=== PATIENT | female | born 1965 | race Caucasian/White ===

== ENCOUNTER 2018-02-01 10:01 | Emergency (ER) | payer BC ==
[~2018-02-01] VITALS: Ht 162.6 cm; Wt 51.7 kg
[2018-02-01 10:28] VITALS: BP 159/93
[2018-02-01] MEDS ORDERED: HYDR-971 PO (11:06)
[2018-02-01] MEDS ORDERED: ACYC800T PO (11:06)
[2018-02-01] MEDS ORDERED: IBUP-1060 PO (11:06)
[2018-02-01] MEDS: MORPHINE SULFATE 10 MG/ML VIAL. IM ONE (11:32)
--- NOTE | 2018-02-01 16:09 | PHYS DOC ---
Past Medical History Past Medical History: Other Additional Past Medical Histor: MS Past Surgical History: Hysterectomy Alcohol Use: None Drug Use: None Adult General Chief Complaint Chief Complaint: SKIN RASH/ABSCESS HPI HPI Patient is a 53 year old female who presents with rash. She develops symptoms of the last 2-3 days. Patient has not had similar symptoms in the past. No fever. She complains of rash over the left side of her torso. No additional complaints today. Review of Systems Review of Systems Constitutional: Denies fever or chills Respiratory: Denies Cardiovascular: No additional information GI: Denies abdominal pain : Denies dysuria Musculoskeletal: Denies back pain Integument: rash on torso Neurologic: Denies headache Endocrine: Denies polyuria All other systems were reviewed and found to be within normal limits, except as documented in this note. Current Medications Current Medications Current Medications Medications (Trade) Dose Ordered Sig/Hemant Start Time Stop Time Status Last Admin Dose Admin Morphine Sulfate (Morphine Sulfate) 10 mg 1X ONCE 02/01/18 11:30 02/01/18 11:31 DC 02/01/18 11:32 10 MG Allergies Allergies Allergies Coded Allergies Type Severity Reaction Last Updated Verified codeine Allergy Severe ANAPHYLAXSIS 02/01/18 Yes Sulfa (Sulfonamide Antibiotics) Allergy Intermediate HIVES 02/01/18 Yes Physical Exam Physical Exam Constitutional: Well developed, well nourished, no acute distress, non-toxic appearance HENT: Normocephalic, atraumatic, bilateral external ears normal, oropharynx moist Neck: Normal range of motion Cardiovascular:Heart rate regular rhythm Lungs & Thorax: Bilateral breath sounds clear to auscultation Skin: Warm, dry, vesicles over erythematous base in varying stages over right rib cage and back c/w shingles Back: No tenderness Neurologic: Alert and oriented X 3 Psychologic: Affect normal Current Patient Data Vital Signs Vital Signs Date Time Temp Pulse Resp B/P (MAP) Pulse Ox O2 Delivery O2 Flow Rate FiO2 02/01/18 11:32 16 98 Room Air 02/01/18 10:28 98.1 84 159/93 (115) 98.1 EKG EKG [] Radiology/Procedures Radiology/Procedures [] Course & Med Decision Making Course & Med Decision Making Pertinent Labs and Imaging studies reviewed. (See chart for details) Patient was evaluated in the emergency department for symptoms consistent with shingles. She has not had them previously. She was given a shot of intramuscular morphine in the ER which did relieve her pain symptoms. She was discharged home with acyclovir, ibuprofen, and [place] for more severe pain. She was advised to follow-up with her primary care doctor or return to the ER for any new or worsening symptoms. Dragon Disclaimer Dragon Disclaimer This electronic medical record was generated, in whole or in part, using a voice recognition dictation system. Departure Departure Impression: Primary Impression: Shingles Disposition: HOME, SELF-CARE Condition: GOOD Patient Instructions: Shingles, Pain Medicine Instructions Scripts Acyclovir (ACYCLOVIR) 800 Mg Tablet 1 TAB PO 5XDAY for 10 Days, #50 TAB 2 Refills Prov: ADA COLLIER DO 02/01/18 Hydrocodone/Apap 5-325 (NORCO 5-325 TABLET) 1 Each Tablet 2 EACH PO PRN Q6HRS PRN for severe pain, #30 as needed for pain Prov: ADA COLLIER DO 02/01/18 Ibuprofen (IBUPROFEN) 800 Mg Tablet 800 MG PO PRN TID PRN for moderate pain, #30 TAB take with food or milk to avoid upsetting stomach Prov: ADA COLLIER DO 02/01/18 ADA COLLIER DO Feb 01, 2018 16:09
== END 2018-02-01 11:54 | disposition home or self-care (01) ==
LOC: ER 10:01
DX: B02.9 Zoster without complications (principal); Z90.710 Acquired absence of both cervix and uterus; Z88.5 Allergy status to narcotic agent; Z88.2 Allergy status to sulfonamides
CPT/HCPCS: 96372; 99283; J2270

== ENCOUNTER 2018-02-06 13:16 | Emergency (ER) | payer BC ==
[~2018-02-06] VITALS: Ht 167.6 cm; Wt 50.8 kg
[~2018-02-06 13:16] MED LIST: ACYC800T PO; HYDR-971 PO; IBUP-1060 PO
[2018-02-06] MEDS ORDERED: oxyCODONE/APAP 5/325 1 TAB TABLET PO ONE (14:30)
[2018-02-06] MEDS ORDERED: predniSONE 20 MG TABLET PO ONE (14:30)
[2018-02-06] MEDS ORDERED: MORPHINE SULFATE 10 MG/ML VIAL. IM ONE (14:30)
[2018-02-06] MEDS ORDERED: KETOROLAC 60 MG/2 ML INJ. IM ONE (14:30)
--- NOTE | 2018-02-06 14:37 | RAD ---
EXAM: CHEST 1 VIEW History: Rib pain, dyspnea COMPARISON: None available. TECHNIQUE: Single portable radiograph of the chest FINDINGS: The cardiac silhouette is unremarkable. The lungs are clear bilaterally. The costophrenic sulci are clear and well demarcated. Partially visualized air distended bowel loop in the epigastrium. IMPRESSION: No radiographic evidence of an acute cardiopulmonary process. Electronically signed by: Popeye Pena MD (02/06/2018 2:34 PM) [facility]
[2018-02-06] MEDS ORDERED: GABA600T2 PO (14:44)
[2018-02-06] MEDS ORDERED: CEPH500T PO (14:44)
[2018-02-06] MEDS ORDERED: METH4TAB2 PO (14:44)
--- NOTE | 2018-02-06 14:45 | PHYS DOC ---
Past Medical History Past Medical History: Other Additional Past Medical Histor: MS,SHINGLES Past Surgical History: Hysterectomy Alcohol Use: None Drug Use: None Adult General Chief Complaint Chief Complaint: RIB PAIN HPI HPI Patient is a 53 year old female who presents with 10 out of 10 pain related shingles she was diagnosed with 5 days ago. Patient denies any fever. She states some of the lesions have started turning yellow. She states she's been taking hydrocodone prescribed 5 days ago with no relief. Review of Systems Review of Systems Constitutional: Denies fever or chills [] Eyes: Denies change in visual acuity, redness, or eye pain [] HENT: Denies nasal congestion or sore throat [] Respiratory: Denies cough or shortness of breath [] Cardiovascular: No additional information not addressed in HPI [] GI: Denies abdominal pain, nausea, vomiting, bloody stools or diarrhea [] : Denies dysuria or hematuria [] Musculoskeletal: Denies back pain or joint pain [] Integument: Reports shingles rash and pain Neurologic: Denies headache, focal weakness or sensory changes [] All other systems were reviewed and found to be within normal limits, except as documented in this note. Current Medications Current Medications Current Medications Medications (Trade) Dose Ordered Sig/Hemant Start Time Stop Time Status Last Admin Dose Admin Ketorolac Tromethamine (Toradol Im) 60 mg 1X ONCE 02/06/18 14:30 02/06/18 14:32 DC Morphine Sulfate (Morphine Sulfate) 5 mg 1X ONCE 02/06/18 14:30 02/06/18 14:31 UNV Oxycodone/ Acetaminophen (Percocet 5/325) 2 tab 1X ONCE 02/06/18 14:30 02/06/18 14:31 UNV Prednisone (Prednisone) 60 mg 1X ONCE 02/06/18 14:30 02/06/18 14:32 DC Allergies Allergies Allergies Coded Allergies Type Severity Reaction Last Updated Verified codeine Allergy Severe ANAPHYLAXSIS 02/01/18 Yes Sulfa (Sulfonamide Antibiotics) Allergy Intermediate HIVES 02/01/18 Yes Physical Exam Physical Exam Constitutional: Well developed, well nourished, no acute distress, non-toxic appearance. [] HENT: Normocephalic, atraumatic, bilateral external ears normal, oropharynx moist, no oral exudates, nose normal. [] Eyes: PERRLA, EOMI, conjunctiva normal, no discharge. [] Neck: Normal range of motion, no tenderness, supple, no stridor. [] Cardiovascular:Heart rate regular rhythm, no murmur [] Lungs & Thorax: Bilateral breath sounds clear to auscultation [] Abdomen: Bowel sounds normal, soft, no tenderness, no masses, no pulsatile masses. [] Skin: Warm, dry, shingles lesions noted along dermatome 7 on the left side. Some of the lesions are yellowish concerning for infection. Back: No tenderness, no CVA tenderness. [] Extremities: No tenderness, no cyanosis, no clubbing, ROM intact, no edema. [] Neurologic: Alert and oriented X 3, normal motor function, normal sensory function, no focal deficits noted. [] Psychologic: Affect normal, judgement normal, mood normal. [] Current Patient Data Vital Signs Vital Signs Date Time Temp Pulse Resp B/P (MAP) Pulse Ox O2 Delivery O2 Flow Rate FiO2 18 14:15 97.8 119 22 138/88 (105) 99 Room Air 97.8 EKG EKG [] Radiology/Procedures Radiology/Procedures [] Course & Med Decision Making Course & Med Decision Making Pertinent Labs and Imaging studies reviewed. (See chart for details) This is a 53-year-old female patient presenting to the ED today with shingles rash and pain. She was diagnosed with shingles 5 days ago. She is on acyclovir and hydrocodone with no relief of her pain. Gave her prescription for gabapentin and Medrol Dosepak to take with her current pain medicines. Also given prescription for cephalexin because some of the lesions aren't yellowish. Follow-up with her PCP in 1-2 weeks. Dragon Disclaimer Dragon Disclaimer This electronic medical record was generated, in whole or in part, using a voice recognition dictation system. Departure Departure Impression: Primary Impression: Shingles rash Disposition: 01 HOME, SELF-CARE Condition: STABLE Referrals: NO PCP (PCP) Follow-up with your primary care doctor in one week Patient Instructions: Shingles, [id number] Additional Instructions: You were evaluated in the emergency room for shingles pain. Continue taking acyclovir and hydrocodone. We added you more pain medicine and antibiotics. Take them as prescribed. Scripts Gabapentin (GABAPENTIN) 600 Mg Tablet 600 MG PO TID, #90 TAB Prov: SHINE QUINTERO APRN 02/06/18 Methylprednisolone (MEDROL) 4 Mg Tab.ds.pk 1 PKG PO UD, #1 PKG Prov: SHINE QUINTERO APRN 02/06/18 Cephalexin (CEPHALEXIN) 500 Mg Tablet 1 TAB PO QID, #40 TAB Prov: SHINE QUINTERO APRN 02/06/18 Problem Qualifiers Primary Impression: Shingles rash Herpes zoster complications: without complications Qualified Codes: B02.9 - Zoster without complications SHINE QUINTERO APRN Feb 06, 2018 14:44
[2018-02-06 15:00] VITALS: BP 121/77
== END 2018-02-06 15:04 | disposition home or self-care (01) ==
LOC: ER 13:16
DX: R21 Rash and other nonspecific skin eruption (principal); B02.9 Zoster without complications; Z90.710 Acquired absence of both cervix and uterus; Z88.5 Allergy status to narcotic agent; Z88.2 Allergy status to sulfonamides
CPT/HCPCS: 71045; 96372; 99284; J1885; J2270; J7512

== ENCOUNTER 2018-04-07 14:22 | Emergency (ER) | payer BC ==
[~2018-04-07] VITALS: Ht 167.6 cm; Wt 50.8 kg
[~2018-04-07 14:22] MED LIST changes: +CEPH500T PO; +GABA600T2 PO; +HYDR-3164 PO; -HYDR-971 PO; +METH4TAB2 PO
[2018-04-07 14:36] VITALS: BP 143/80
--- NOTE | 2018-04-07 14:54 | PHYS DOC ---
Past Medical History Past Medical History: Other Additional Past Medical Histor: MS,KAMINI Past Surgical History: Hysterectomy Alcohol Use: None Drug Use: None Adult General Chief Complaint Chief Complaint: LOWER EXT PAIN HPI HPI 53-year-old female presents to ER via POV with complaints of left knee redness and pain for the past 3 days which has gradually worsened. Patient reports she has been ambulatory without assistive device. Patient states she took Tylenol last night with slight improvement in pain. Patient denies any recent falls or injury. Patient denies any recent travel or previous left knee symptoms. Review of Systems Review of Systems Constitutional: Denies fever or chills [] Respiratory: Denies cough or shortness of breath [] Cardiovascular: No additional information not addressed in HPI [] GI: Denies nausea, vomiting Musculoskeletal: Denies back pain. Reports left knee pain, redness, and swelling Integument: Denies rash or skin lesions [] Neurologic: Denies headache, focal weakness or sensory changes. Denies numbness or tingling All other systems were reviewed and found to be within normal limits, except as documented in this note. Current Medications Current Medications Current Medications Medications (Trade) Dose Ordered Sig/Hemant Start Time Stop Time Status Last Admin Dose Admin Ibuprofen (Motrin) 600 mg 1X ONCE 04/07/18 15:00 04/07/18 15:01 DC 04/07/18 14:59 600 MG Allergies Allergies Allergies Coded Allergies Type Severity Reaction Last Updated Verified codeine Allergy Severe ANAPHYLAXSIS 02/01/18 Yes Sulfa (Sulfonamide Antibiotics) Allergy Intermediate HIVES 02/01/18 Yes Physical Exam Physical Exam Constitutional: Well developed, well nourished, no acute distress, non-toxic appearance. [] HENT: Normocephalic, atraumatic, oropharynx moist Eyes: Pupils equal, conjunctiva normal, no discharge. [] Neck: Normal range of motion, no tenderness, supple, no stridor. [] Cardiovascular:Heart rate regular Lungs & Thorax: Resp. equal/nonlabored Abdomen: Bowel sounds normal, soft, no tenderness, no masses, no pulsatile masses. [] Skin: Warm, dry Extremities: No cyanosis, no clubbing, ROM intact. Anterior swelling to left knee with warmth and erythema. No palpable effusion or dislocation/deformity- she is able to extend/flex but has increased pain w/these motions. No effusion palp. on exam. No posterior knee pain/swelling/erythema. Calf size symmetric bilat. 2+ pedal/dorsal pedis bilat. No pedal edema bilat. Neurologic: Alert and oriented X 3, normal motor function, normal sensory function, no focal deficits noted. [] Psychologic: Affect normal, judgement normal, mood normal. [] Current Patient Data Vital Signs Vital Signs Date Time Temp Pulse Resp B/P (MAP) Pulse Ox O2 Delivery O2 Flow Rate FiO2 04/07/18 14:36 97.9 73 18 143/80 (101) 97 Room Air 97.9 EKG EKG [] Radiology/Procedures Radiology/Procedures PROCEDURE: KNEE LEFT 3V 3 views left knee 04/07/2018 3:04 PM Indication: PAIN, SWELLING, REDNESS X 3 DAYS, NO KNOWN INJURY. HX MS Comparison: None Findings: There is no acute fracture or dislocation. Articular surfaces are uninterrupted and smooth. Some prepatellar soft tissue thickening appears to be present. No joint effusion is seen.. Impression: Prepatellar soft tissue thickening without evidence of acute osseous abnormality. Electronically signed by: Dov Proctor MD (04/07/2018 3:24 PM) [id number] DICTATED and SIGNED BY: DOV PROCTOR MD DATE: 04/07/18 1523 Course & Med Decision Making Course & Med Decision Making Pertinent Imaging studies reviewed. (See chart for details) Patient was evaluated in the ER for complaints of left knee pain and swelling. Patient's x-ray report with "prepatellar soft tissue thickening without evidence of acute osseous abnormality'. Discussed plans for home discharge with prescription for Keflex and doxycycline for cellulitis. Will provide pain medication prescription with discharge paperwork. Pt remains neuro/vascular intact lt LE with no increased swelling/redness. Pt has been ambulatory without assist w/steady gait while in ER. Offered crutches and discussed use of walker- pt refused crutches and preferred no walker. Education provided on signs and symptoms to return to ER for and patient advised on need for follow-up in next 3 -5 days for reevaluation. Will provide clinic and physician referral information with discharge paperwork. Patient instructed on use of NSAIDs as directed on container as needed. Discharge instructions were discussed. Staff Physician Addendum: I was working in the ER during the course of this patient's visit. I was available for consultation as needed, but I was not directly involved in the care of this patient. Dragon Disclaimer Dragon Disclaimer This electronic medical record was generated, in whole or in part, using a voice recognition dictation system. Departure Departure Impression: Primary Impression: Cellulitis of knee, left Disposition: 01 HOME, SELF-CARE Condition: STABLE Referrals: NO PCP (PCP) Patient Instructions: Cellulitis Additional Instructions: Elevate left leg-. Ice pack to left knee every 3-4 hours for 20-30 minutes at a time. Follow-up with primary doctor if symptoms persist or worsen. Ibuprofen as directed on container as needed for pain. Scripts Hydrocodone/Apap 5-325 (NORCO 5-325 TABLET) 1 Each Tablet 1 TAB PO PRN Q6HRS PRN for PAIN, #12 TAB 0 Refills Prov: SHAWN BRUSH APRN 04/07/18 Doxycycline Monohydrate (DOXYCYCLINE MONOHYDRATE) 100 Mg Capsule 1 CAP PO BID, #14 CAP 0 Refills Prov: SHAWN BRUSH APRN 04/07/18 Cephalexin (KEFLEX) 500 Mg Capsule 1 CAP PO TID, #21 CAP Prov: SHAWN BRUSH APRN 04/07/18 HSAWN BRUSH APRN Apr 07, 2018 14:54 JOSE MIGUEL HASSAN MD Apr 08, 2018 18:22
[2018-04-07] MEDS ORDERED: IBUPROFEN 600 MG TABLET. PO ONE (15:00)
--- NOTE | 2018-04-07 15:27 | RAD ---
3 views left knee 04/07/2018 3:04 PM Indication: PAIN, SWELLING, REDNESS X 3 DAYS, NO KNOWN INJURY. HX MS Comparison: None Findings: There is no acute fracture or dislocation. Articular surfaces are uninterrupted and smooth. Some prepatellar soft tissue thickening appears to be present. No joint effusion is seen.. Impression: Prepatellar soft tissue thickening without evidence of acute osseous abnormality. Electronically signed by: Dov Pool MD (04/07/2018 3:24 PM) [id number]
[2018-04-07] MEDS ORDERED: DOXY100C14 PO (15:43)
[2018-04-07] MEDS ORDERED: CEPH-264 PO (15:43)
[2018-04-07] MEDS ORDERED: HYDR-3164 PO (15:43)
== END 2018-04-07 15:51 | disposition home or self-care (01) ==
LOC: ER 14:22
DX: L03.116 Cellulitis of left lower limb (principal); Z90.710 Acquired absence of both cervix and uterus; Z88.5 Allergy status to narcotic agent; Z88.2 Allergy status to sulfonamides
CPT/HCPCS: 73562; 99283

== ENCOUNTER → 2018-11-28 | Outpatient (CLI) | payer OTHER ==
[~2018-11-28] MED LIST changes: +CEPH-264 PO; +DOXY100C14 PO; -GABA600T2 PO; +GABA600T7 PO
--- NOTE | 2018-11-28 16:52 | RAD ---
EXAM: AP, lateral and lumbosacral spot views of the lumbar spine DATE: 11/28/2018 12:00 AM INDICATION: Low back pain, limited motion COMPARISON: No Prior FINDINGS: The exam is limited by grid artifact. For the purposes of this report there are 5 nonrib-bearing lumbar-type vertebral bodies. Decreased bone mineral density. No evidence for acute fracture. Disc heights are grossly preserved. No spondylolisthesis. Mild L4-5 and moderate L5-S1 facet degenerative changes. No spondylolisthesis. IMPRESSION: 1. No evidence for acute fracture or subluxation. 2. Mild degenerative changes most prominent at L5-S1. Electronically signed by: Primo Bush MD (11/28/2018 4:49 PM) [facility]
== END | disposition home or self-care (01) ==
LOC: RAD 10:11
PROVIDERS: ATTEND Internal Medicine Rheumatology
DX: M47.817 Spondylosis without myelopathy or radiculopathy, lumbosacral region (principal)
CPT/HCPCS: 72100

== ENCOUNTER 2019-12-11 19:59 | Emergency (ER) | payer OTHER ==
[~2019-12-11] VITALS: Ht 167.6 cm; Wt 59.0 kg
--- NOTE | 2019-12-11 21:39 | PHYS DOC ---
Past Medical History Past Medical History: Other Additional Past Medical Histor: MS,KAMINI Past Surgical History: Hysterectomy Smoking Status: Never Smoker Alcohol Use: None Drug Use: None General Adult EDM: Chief Complaint: MECHANICAL FALL HPI: HPI: Patient is a 54 year old female who presents with evaluation for a mechanical fall that happened yesterday. Patient says she lost her balance and fell in the basement hit her face and head on the ground. Patient unsure whether she lost consciousness but does have blurry vision and some dizziness and a headache and facial pain today. Patient denies any vomiting. Patient takes an aspirin. Patient states the pain is moderate and worse with activity which makes it severe. There is no radiation associate with pain. Review of Systems: Review of Systems: Constitutional: Denies fever or chills. [] Eyes: Complains of blurry vision HENT: Denies nasal congestion or sore throat. [] Respiratory: Denies cough or shortness of breath. [] Cardiovascular: Denies chest pain or edema. [] GI: Denies abdominal pain, nausea, vomiting, bloody stools or diarrhea. [] : Denies dysuria. [] Musculoskeletal: Denies back pain or joint pain. [] Integument: Denies rash. [] Neurologic: Complains of headache but no focal weakness or sensory changes. [] Endocrine: Denies polyuria or polydipsia. [] Lymphatic: Denies swollen glands. [] Psychiatric: Denies depression or anxiety. [] Heart Score: Risk Factors: Risk Factors: DM, Current or recent (<one month) smoker, HTN, HLP, family history of CAD, obesity. Risk Scores: Score 0 - 3: 2.5% MACE over next 6 weeks - Discharge Home Score 4 - 6: 20.3% MACE over next 6 weeks - Admit for Clinical Observation Score 7 - 10: 72.7% MACE over next 6 weeks - Early Invasive Strategies Allergies: Allergies: Allergies Coded Allergies Type Severity Reaction Last Updated Verified codeine Allergy Severe ANAPHYLAXSIS 02/01/18 Yes Sulfa (Sulfonamide Antibiotics) Allergy Intermediate HIVES 02/01/18 Yes Physical Exam: PE: Constitutional: Well developed, well nourished, no acute distress, non-toxic ap pearance. [] HENT: Mild swelling to the lips with abrasion on the right lower lip. The right upper central incisor has a small crack. There is no malocclusion no septal hematoma, mild tenderness to palpate over the mandible Eyes: PERRLA, EOMI, conjunctiva normal, no discharge. [] Neck: Normal range of motion, no tenderness, supple, no stridor. [] Cardiovascular:Heart rate regular rhythm, Lungs & Thorax: No respiratory distress Abdomen:, soft, no tenderness, no masses, Skin: Warm, dry, no erythema, no rash. [] Back: No tenderness, no CVA tenderness. [] Extremities: No tenderness, no cyanosis, no clubbing, ROM intact, no edema. [] Neurologic: Alert and oriented X 3, normal motor function, normal sensory function, no focal deficits noted. [] Psychologic: Affect normal, judgement normal, mood normal. [] Current Patient Data: Vital Signs: Vital Signs Date Time Temp Pulse Resp B/P (MAP) Pulse Ox O2 Delivery O2 Flow Rate FiO2 12/11/19 20:30 98.3 99 18 126/87 (100) 97 Room Air 98.3 EKG: EKG: [] Radiology/Procedures: Radiology/Procedures: [][facility] [address] [place] [address] IMAGING REPORT Signed PATIENT: RENETTA RIOJAS ACCOUNT: [id number] : 1965 LOCATION: ER AGE: 54 SEX: F EXAM STATUS: REG ER ORD. PHYSICIAN: JACINTO EUGENE MD REASON: fall PROCEDURE: CT HEAD AND MAXILLOFACIAL WO Exam: CT head and maxillofacial without contrast INDICATION: Fall TECHNIQUE: Sequential axial images through the head and cervical spine were obtained without the administration of IV contrast. Comparisons: None FINDINGS: Head: No focal parenchymal lesion or hemorrhage is identified. There is no midline shift or sulcal effacement. Patchy hypodensity in the periventricular white matter. No acute vascular territory infarction is identified. Mathew-white distinction is preserved. The ventricular system is within normal limits without compression hydrocephalus. The basal cisterns are well maintained. Face: The visualized portions of the paranasal sinuses and mastoid air cells are well-pneumatized. No acute fractures. Globes and intraorbital contents are unremarkable. Mild soft tissue contusion anterior to the mental portion of the mandible. IMPRESSION: 1. Mild soft tissue contusion anterior to the mandible without underlying osseous abnormality. 2. Negative CT C-spine for acute traumatic injury. Exposure: One or more of the following in the visualized dose reduction techniques were utilized for this examination: 1. Automated exposure control 2. Adjustment of the MA and/or KV according to patient size Use of iterative of reconstructive technique Electronically signed by: Festus Lyon MD (12/11/2019 9:55 PM) [id number] DICTATED and SIGNED BY: FESTUS LYON MD DATE: 12/11/192154 Course & Med Decision Making: Course & Med Decision Making Pertinent Labs and Imaging studies reviewed. (See chart for details) [] Indications for a head CT in patients presenting to the emergency department for minor blunt head trauma: Patients with any one of the following: ( )GCS score less than 15 (+ )Severe headache ( )Vomiting ( )Age 65 years and older ( )Physical signs of a basilar skull fracture (signs include haemotympanum, ``raccoon eyes, cerebrospinal fluid leakage from the ear or nose, Battles sign) ( )Focal neurological deficit ( )Coagulopathy ( )Thrombocytopenia ()Currently taking any of the following anticoagulant medications: apixaban, argatroban, betrixaban, bivalirudin, dabigatran, dalteparin, desirudin, edoxaban, enoxaparin, fondaparinux, heparin, rivaroxaban, warfarin ( )Dangerous mechanism of injury (i.e., ejection from a motor vehicle, a pedestrian struck, and a fall from a height of more than 3 feet or 5 stairs) OR Patients with either loss of consciousness OR posttraumatic amnesia AND any one of the following: ( )GCS score less than 15 ( )Headache ( )Age 60 years and older, and less than 65 years ( )Drug/alcohol intoxication ( )Short-term memory deficits ( )Evidence of trauma above the clavicles (physical location, any trauma to the head or neck [i.e., laceration, abrasion, bruising, ecchymosis, hematoma, swelling, fracture]) ( )Posttraumatic seizure 54-year-old female with a ground-level fall. Patient underwent a head CT due to her age, mechanism and taking aspirin. And imaging is negative. Patient stable for discharge and outpatient follow-up On repeated questioning patient states she feels safe at home. Juliette Disclaimer: Juliette Disclaimer: This electronic medical record was generated, in whole or in part, using a voice recognition dictation system. Departure Departure Impression: Primary Impression: Concussion Additional Impression: Facial contusion Disposition: HOME, SELF-CARE Condition: STABLE Referrals: NO PCP (PCP) PCP 2-3 DAYS Patient Instructions: Concussion-SportsMed, Facial or Scalp Contusion Additional Instructions: EMERGENCY DEPARTMENT GENERAL DISCHARGE INSTRUCTIONS THANK YOU for coming to [facility] Emergency Department (ED) today and trusting us with your care. We trust that you had a positive experience in our Emergency Department. If you wish to speak to the department Management you can contact the specialty department supervisor at . YOUR FOLLOW UP INSTRUCTIONS ARE FOLLOWS: Do you have a private doctor? If you do not have a private doctor, please ask for a resource list of physicians or clinics that may be able to assist you with follow up care. The Emergency Physician has interpreted your x-rays. The X-ray specialist will also review them. If there is a change in the findings you will be notified in 48 hours when at all possible. A lab test or lab culture may have been done, your results will be reviewed and you will be notified if you need a change in treatment. ADDITIONAL INSTRUCTIONS AND INFORMATION Your care today has been supervised by a physician who is specially trained in emergency care. Many problems require more than one evaluation for a complete diagnosis and treatment. We recommend that you schedule your follow up appointment as recommended to ensure complete treatment of your illness or injury. If you are unable to obtain follow up care and continue to have a problem, or if your condition worsens we recommend that you return to the ED. We are not able to safely determine your condition over the phone nor are we able to give sound medical advice over the phone. For these safety reasons, if you call for medical advice we will ask you to come to the ED for further evaluation If you have any questions regarding these discharge instructions please call the ED at . SAFETY INFORMATION In the interest of safety, wellness, and injury prevention; we encourage you to wear your seatbelt, if you smoke; quit smoking, and we encourage your family to use protective helmet for bicycling and other sporting events that present an increased risk for head injury. IF YOUR SYMPTOMS WORSEN OR NEW SYMPTOMS DEVELOP, OR YOU HAVE CONCERNS ABOUT YOUR CONDITION; OR IF YOUR CONDITION WORSENS WHILE YOU ARE WAITING FOR YOUR FOLLOW UP APPOINTMENT; EITHER CONTACT YOUR PRIMARY CARE DOCTOR, THE PHYSICIAN WHOSE NAME AND NUMBER YOU WERE GIVEN, OR RETURN TO THE ED IMMEDIATELY. Justicifation of Admission Dx: Justifications for Admission: Justification of Admission Dx: N/A JACINTO EUGENE MD Dec 11, 2019 21:39
--- NOTE | 2019-12-11 21:58 | RAD ---
Exam: CT head and maxillofacial without contrast INDICATION: Fall TECHNIQUE: Sequential axial images through the head and cervical spine were obtained without the administration of IV contrast. Comparisons: None FINDINGS: Head: No focal parenchymal lesion or hemorrhage is identified. There is no midline shift or sulcal effacement. Patchy hypodensity in the periventricular white matter. No acute vascular territory infarction is identified. Mathew-white distinction is preserved. The ventricular system is within normal limits without compression hydrocephalus. The basal cisterns are well maintained. Face: The visualized portions of the paranasal sinuses and mastoid air cells are well-pneumatized. No acute fractures. Globes and intraorbital contents are unremarkable. Mild soft tissue contusion anterior to the mental portion of the mandible. IMPRESSION: 1. Mild soft tissue contusion anterior to the mandible without underlying osseous abnormality. 2. Negative CT C-spine for acute traumatic injury. Exposure: One or more of the following in the visualized dose reduction techniques were utilized for this examination: 1. Automated exposure control 2. Adjustment of the MA and/or KV according to patient size Use of iterative of reconstructive technique Electronically signed by: Festus Bagley MD (12/11/2019 9:55 PM) [id number]
[2019-12-11 22:30] VITALS: BP 139/76
== END 2019-12-11 22:45 | disposition home or self-care (01) ==
LOC: ER 19:59
DX: S06.0X0A Concussion without loss of consciousness, initial encounter (principal); Z88.2 Allergy status to sulfonamides; Z88.5 Allergy status to narcotic agent; W18.09XA Striking against other object with subsequent fall, initial encounter; Y93.89 Activity, other specified; Y92.89 Other specified places as the place of occurrence of the external cause; Y99.8 Other external cause status
CPT/HCPCS: 70450; 70486; 99285-25